=== PATIENT | male | born 1980 | race Caucasian/White ===

== ENCOUNTER 2019-04-20 05:47 | Emergency (ER) | payer OTHER ==
[~2019-04-20] VITALS: Ht 165.1 cm; Wt 83.2 kg
[2019-04-20] MEDS ORDERED: PROAAER10 INH (05:54)
[2019-04-20] MEDS ORDERED: FLON1SPR NARES (05:54)
[2019-04-20] MEDS ORDERED: ADV250INH INH (05:54)
[2019-04-20] MEDS ORDERED: LOSA100T5 PO (06:03)
[2019-04-20 07:18] LABS: HEMATOCRIT 47.2 % (42.0-52.0); MEAN CORPUSCULAR HEMOGLOBIN 30.5 pg (27.0-33.0); MEAN CORPUSCULAR HGB CONC 33.9 g/dl (32.0-36.5); MEAN CORPUSCULAR VOLUME 89.9 fl (80.0-96.0); PLATELET COUNT, AUTOMATED 357 10^3/uL (150-450); RED BLOOD COUNT 5.25 10^6/uL (4.30-6.10); WHITE BLOOD COUNT 7.5 10^3/uL (4.0-10.0)
[2019-04-20 07:53] LABS: AMPHETAMINES LEVEL URINE NEGATIVE (NEGATIVE); BARBITURATES URINE NEGATIVE (NEGATIVE); BENZODIAZEPINES URINE NEGATIVE (NEGATIVE); CANNABINOIDS URINE NEGATIVE (NEGATIVE); COCAINE METABOLITE URINE NEGATIVE (NEGATIVE); METHADONE URINE NEGATIVE (NEGATIVE); OPIATES URINE NEGATIVE (NEGATIVE); PHENCYCLIDINE URINE NEGATIVE (NEGATIVE)
[2019-04-20 07:57] LABS: ACETAMINOPHEN LEVEL < 2.0 UG/ML (10.0-30.0); ALBUMIN 4.3 GM/DL (3.2-5.2); ALT/SGPT 63 U/L (12-78); BILIRUBIN,DIRECT 0.1 MG/DL (0.0-0.2); BILIRUBIN,TOTAL 0.8 MG/DL (0.2-1.0); BLOOD UREA NITROGEN 11 MG/DL (7-18); CALCIUM LEVEL 9.7 MG/DL (8.5-10.1); CARBON DIOXIDE LEVEL 31 MEQ/L (21-32); CHLORIDE LEVEL 103 MEQ/L (98-107); ETHYL ALCOHOL (ETHANOL) < 0.003 % (0.000-0.010); GLOMERULAR FILTRATION RATE > 60.0 (>60); GLUCOSE, FASTING 110 MG/DL (70-100); POTASSIUM SERUM 4.1 MEQ/L (3.5-5.1); SALICYLATE LEVEL < 1.7 MG/DL (5.0-30.0); SODIUM LEVEL 140 MEQ/L (136-145); TOTAL PROTEIN 8.4 GM/DL (6.4-8.2)
[2019-04-20] MEDS ORDERED: IBUP80TA PO (07:59)
[2019-04-20] MEDS ORDERED: ONE-TAB31 PO (07:59)
[2019-04-20] MEDS ORDERED: LORA-436 PO (07:59)
[2019-04-20] MEDS ORDERED: ALPRAZolam 0.5 MG TAB PO ONE (08:45)
--- NOTE | 2019-04-20 09:24 | ED PDOC ---
Provider Note New Patient Deion Mazariegos MRN: N/A Date of : N/A Date of Service: 04/20/2019 Chief Complaint Consultation for safety. History of Present Illness The patient a 39-year-old man with a history of mild adjustment presents by himself for "help" with various stressful situations. 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 He had been denying suicidal or homicidal ideation through the majority of his presentation. I was asked to come and see him in order to evaluate safety as he had reported that he had had symptoms of increased crying, low mood, fatigue and difficulty coping with stressors as well as insomnia. The patient reportedly did not want to come in voluntarily. When I met with the patient, he related symptoms of adjustment as above in the setting of stressors and restarting his job up here as he has been in [place] prior. His was present who related her may have some problems dealing with stress and has trouble with relaxation but that she had encouraged him to go to [facility]. His chain of command had graciously let him have a week off as a consolation for the high levels of stress that he was having this morning and the patient reported that he felt that this would help him quite a bit. His reported that he had no history of suicide or any parasuicidal statements or behaviors that would suggest that he is at increased risk of suicide. Review Of Systems Depression: As above. Anxiety: The patient denies any excessive worry associated with physical symptoms. They deny any experience of discreet panic in the past. Mohini: The patient denies any episodes of euphoria/dysphoria associated with decreased need for sleep, hedonism, talkatively or impulsivity lasting longer than 5 days. Psychotic: The patient denies any experiences of auditory or visual hallucinations. They deny any episodes of paranoia or delusional thinking in the past Trauma: The patient denies any traumatic events associated with nightmares or intrusive thoughts. Borderline: The patient screens negative for borderline personality at this junction. Past Psychiatric History The patient reports no history of psychiatric admissions, medication trials or current follow up. Allergies Please see below. Family Psychiatric History The patient denies/is unaware any history of mental health history including addictions and suicide. Social History The patient grew up in [place]. Notably, he has no history of witnessing severe trauma or being abused, he reports that he currently lives with his . They recently moved to this area in November from [place]. 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 Substance Abuse History The patient denies any excessive alcohol use, tobacco or illicit drug use, denies history of substance use treatment. Medical History Patient has no significant past medical history. Mental Status Examination General: Well dressed with good hygiene Speech: Spontaneous and fluid Thought processes: Linear and logical MSK: Smooth and coordinated gait, no signs of tremors or involuntary orofacial movements Thought content: Future orientated Abstract reasoning, and computation: Intact Description of associations: Intact Description of abnormal or psychotic thoughts: Denies any suicidal or homicidal ideation. Denies any auditory or visual hallucinations. Does not appear to be responding to internal stimuli. Does not appear to be endorsing any bizarre or paranoid ideation. Judgment: fair Insight: fair Orientation: Alert and orientated 3 Cognition: Grossly normal Recent and remote memory: Intact Attention span and concentration: Intact Fund of knowledge: Adequate Mood: "okay" Affect: Euthymic with a full range Diagnoses Adjustment disorder. 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 He will be getting a vacation from his chain of command in order to focus on his mental health. The patient has not admitted to any suicidal or homicidal ideation. Collateral information supports no parasuicidal behavior or other concerning aspects. He, on mental status, appears euthymic and able to engage in basic self-care, is not impaired by his mental illness, thus he does not meet involuntary criteria and declines voluntary admission. He must be discharged in good nicolas. Time Spent 30 minutes. TALISHA PAEZ DO Apr 20, 2019 09:24
[2019-04-20 11:16] VITALS: BP 131/79
== END 2019-04-20 11:18 | disposition home or self-care (01) ==
LOC: M ED 05:47
DX: F43.20 Adjustment disorder, unspecified (principal); I10 Essential (primary) hypertension; J45.909 Unspecified asthma, uncomplicated; Z79.899 Other long term (current) drug therapy
CPT/HCPCS: 36415; 80048; 80076; 80307; 84443; 85027; 99284; G0480